=== PATIENT | male | born 1985 | race Caucasian/White ===

== ENCOUNTER 2020-05-07 01:50 | Emergency (ER) | payer BC ==
[~2020-05-07] VITALS: Ht 170.2 cm; Wt 73.9 kg
[~2020-05-07 01:50] MED LIST: ADVIL200 M1 PO; AMOXICILLIN 50500 MG PO; CLEOCIN HCL150 MG PO; PRILOSEC 20 MG20 MG PO
[2020-05-07 02:06] LABS: URINE BILIRUBIN NEGATIVE (Negative); URINE BLOOD NEGATIVE (Negative); URINE CLARITY CLEAR; URINE COLOR YELLOW; URINE GLUCOSE-RANDOM* NEGATIVE (Negative); URINE KETONES NEGATIVE (Negative); URINE LEUKOCYTES-REFLEX NEGATIVE (Negative); URINE NITRITE-REFLEX NEGATIVE (Negative); URINE PROTEIN (DIPSTICK) NEGATIVE (Negative); URINE UROBILINOGEN 0.2 E.U./dl (0.2-1.0)
[2020-05-07 02:31] LABS: ABSOLUTE NEUTROPHILS 3.8 thou/uL (1.4-8.2); BASOPHILS 1.2 % (0.0-2.0); EOSINOPHILS 5.5 % (0.0-3.0); HEMATOCRIT 44.6 % (42.0-52.0); HEMOGLOBIN 15.3 gm/dL (14.0-18.0); LYMPHOCYTES 29.2 % (24.0-44.0); MCH 30.1 pg (26.0-34.0); MCHC 34.4 g/dL (28.0-37.0); MCV 87.6 fL (80.0-100.0); MONOCYTES 11.5 % (1.0-8.0); PLATELET COUNT 367 thou/uL (150-400); POLYS 52.6 % (36.0-66.0); RDW 12.4 % (10.5-14.5); WBC 7.1 thou/uL (4.0-11.0)
[2020-05-07 02:34] LABS: CALCIUM 9.6 mg/dL (8.5-10.1); CREATININE 0.7 mg/dL (0.7-1.3); POTASSIUM 3.7 mmol/L (3.5-5.1)
[2020-05-07 02:40] LABS: ALBUMIN 5.1 g/dL (3.4-5.0); TOTAL BILIRUBIN 0.6 mg/dL (0.2-1.0); TOTAL PROTEIN 8.7 g/dL (6.4-8.2)
[2020-05-07] MEDS ORDERED: AUGMENTIN 875-1 EACH PO (03:59)
[2020-05-07] MEDS ORDERED: CLARITHROMYCIN500 MG PO (04:00)
[2020-05-07] MEDS ORDERED: NORCO5 PO (04:01)
[2020-05-07 04:18] VITALS: BP 174/111
== END 2020-05-07 04:19 | disposition home or self-care (01) ==
LOC: ER 01:50
PROVIDERS: Emergency Medicine
DX: K52.9 Noninfective gastroenteritis and colitis, unspecified (principal); K29.70 Gastritis, unspecified, without bleeding; Z79.899 Other long term (current) drug therapy